=== PATIENT | male | born 1950 | race Caucasian/White ===

== ENCOUNTER → 2024-09-25 12:16 | Outpatient (REF) | payer OTHER, SELFPAY | LOC: RAD 12:16 | PROVIDERS: ATTENDING PHYSICIAN Family Medicine | DX: E78.00 Pure hypercholesterolemia, unspecified (principal); R73.9 Hyperglycemia, unspecified | CPT/HCPCS: 75571 ==

== ENCOUNTER 2025-01-01 06:07 | Day surgery (SDC) | payer OTHER, SELFPAY ==
[2024-12-18 08:58] LABS: Hematocrit 43.8 % (39.0-52.0); Mean Corp Hgb Conc. 34.2 g/dL (33.0-37.0); Mean Corpuscular Hgb 31.8 pg (27.0-31.0); Mean Corpuscular Volume 92.8 fL (80.0-94.0); Mean Platelet Volume 8.7 fL (7.4-10.4); Platelet Count 221 10^3/uL (130-400); Red Blood Cell Count 4.72 10^6/uL (4.70-6.10); Red Cell Dist. Width 13.3 % (11.5-14.5); White Blood Cell Count 5.8 10^3/uL (4.8-10.8)
[2024-12-18 09:31] LABS: Blood Urea Nitrogen 15 mg/dl (9-20); Calcium 9.2 mg/dl (8.4-10.2); Carbon Dioxide 30 mmol/L (22-30); Chloride 103 mmol/L (98-107); Glucose 103 mg/dl (70-99); Potassium 4.2 mmol/L (3.5-5.1); Sodium 140 mmol/L (135-145); eGFR > 60.00
[2024-12-18 13:30] VITALS: BMI 22.9
[2025-01-01] VITALS (12 sets, daily range): BP systolic 98–129; BP diastolic 62–81; BMI 22.9
[2025-01-01] MEDS: TYLENOL 1000 MG PO (06:26)
[2025-01-01] MEDS: NORMOSOL-R/PLASMALYTE-A 1000 IV (06:35)
[2025-01-01] MEDS: MOTRIN 600 MG PO (09:56)
== END 2025-01-01 10:21 | disposition home or self-care (01) ==
LOC: SDS 06:07
PROVIDERS: ATTENDING PHYSICIAN Surgery; FAMILY PHYSICIAN Family Medicine
DX: K40.90 Unilateral inguinal hernia, without obstruction or gangrene, not specified as recurrent (principal)
CPT/HCPCS: 49505; 36415; 80048; 85027; 93005; C1781